=== PATIENT | male | born 1995 | race Caucasian/White ===

== ENCOUNTER 2022-12-02 14:15 | Emergency (ER) | payer MEDICAID, SELFPAY ==
[2022-12-02 14:18] VITALS: BP 161/109; PULSE 66; RESP 18; TEMP 36.6; O2SAT 97; BMI 30.2
[2022-12-02] MEDS: Lidocaine 1% (20 ml mdv) 20 ML Vial 10 ML INFILT (16:13)
--- NOTE | 2022-12-02 16:31 | EDS_ITS ---
HPI History of Present Illness Chief Complaint: Dental Detail of Chief Complaint: Dental pain and infection for several days with pain for several weeks. Informant: patient and parent Onset/Context/Timing Onset: Days and Weeks Context: Gradual Onset Timing: Continuous Current Severity: Moderate Maximum Severity: Moderate Relieved by: NSAIDs Associated Symptoms Assocated Symptom - Dental: fever, jaw swelling and face swelling Narrative Narrative: 27-year-old male no significant past medical or surgical history. Has had a dental infection that is gotten worse over the last 4 to 5 days. He had dental pain in the same area for several weeks. Said he has amoxicillin allergy and had a rash when he was a child. They placed him on clindamycin recently has developed a rash with itching now with that. He denies any trouble breathing or swallowing. He does have left-sided jaw and facial swelling. He saw the urgent care today who sent him to the emergency department. Prior similar symptoms: No Recent Illness/Hospitalization: No PFSH PFSH Medical History no medical history no medical history Home Medications doxycycline hyclate 100 mg capsule 100 mg PO BID 10 days #20 caps 12/02/22 [Rx Last Taken Unknown] Allergy/AdvReac Type Severity Reaction Status Date / Time amoxicillin Allergy Rash Verified 12/02/22 14:18 clindamycin Allergy Rash Verified 12/02/22 14:18 Surgical History no surgical history no surgical history Social History Smoking Status: Current every day smoker tobacco type: cigarettes ROS ROS ED ROS Narrative Low-grade fever. Dental pain. Left-sided facial and jaw swelling. Review of Systems ROS Unobtainable: Denies due to encephalopathy Constitutional Constitutional ED: Reports fever(s) and subjective; Denies chills Eyes Eyes: Denies blurry vision ENT ENT ED: Denies ear pain Cardiovascular Cardiovascular: Denies chest pain Respiratory/Chest Respiratory/Chest: Denies cough or dyspnea Gastrointestinal Gastrointestinal: Denies abdominal pain Genitourinary Genitourinary ED: Denies dysuria or hematuria Musculoskeletal Musculoskeletal: Denies arthralgias, back pain, myalgias or neck pain Integumentary Denies abscess or Abrasions Neurologic Neurologic: Denies headache(s) Psychiatric Psychiatric: Denies anxiety Endocrine Endocrinology: Denies cold intolerance Hematologic/Lymphatic Hematologic/Lymphatic: Denies easy bleeding or easy bruising Allergic/Immunologic Allergic/Immunologic ED: Reports mouth swelling; Denies tongue swelling or urticaria EXAM Physical Exam Narrative Exam Narrative: [id number] male vital signs stable afebrile does not look septic toxic. No distress. H EENT exam pupils are reactive light. He does have left jaw mandibular swelling. Inside his mouth he has multiple decaying teeth on the left side left lower jaw his molars and premolars are eroded down to the gumline the gums swollen consistent with gingivitis and infection. There is also an abscess on the inner portion of the his third tooth from the back on the left lower jaw. This I can drain. There is no Christian's angina. He can open and close his mouth easily. No trouble breathing or swallowing. No drooling. There is no significant cervical lymphadenopathy. Lungs are clear. Heart regular rhythm. No murmur. Abdomen soft. Otherwise exam unremarkable. Const Vital Signs: 12/02/22 14:18 Temperature 98 F Temperature Source Temporal Pulse Rate 66 Respiratory Rate 18 Blood Pressure 161/109 H Blood Pressure Mean 126 Pulse Ox 97 Oxygen Delivery Method Room Air Positive well nourished and well developed; Negative for obese, cachectic, contractures or unkempt General Appearance ED: well developed and NAD; Negative for unkempt, cachectic or contractures Nutritional Appearance: Negative for cachectic or obese HEENT tenderness; Negative for trauma Mouth ED: Yes tongue normal, Yes salivary gland normal, No mouth trauma, Yes oral and palatal mucosa abnormal and No salivary gland abnormal Mouth: tongue normal, salivary gland normal, No mouth trauma, oral and palatal mucosa abnormal and No salivary gland abnormal Teeth and Gingiva: abnormal tooth and associated gingiva, caries, gingiva abnormal, poor dentition and teeth discoloration Throat: posterior oropharynx normal Eyes PERRL and EOMs intact bilaterally General Eye ED: Negative for pale conjunctiva or scleral icterus Visual Acuity: Negative for other Neck no lymphadenopathy, supple and no JVD General: normal visual inspection; Negative for anterior neck swelling, tenderness or submandibular swelling Lymph Lymphatic: no lymphadenopathy noted; Negative for lymphadenopathy Chest Wall inspection of chest normal and palpation of chest normal Chest: Negative for other Resp normal respiratory effort, no retractions and clear to auscultation bilaterally Cardio regular rate, regular rhythm, S1 normal heart sound, S2 normal heart sound and n o murmurs Jugular Venous Distention: Negative for other Palpation: Negative for palpable S3 Rate: Negative for bradycardia Rhythm: Negative for abnormal rhythm GI normal to inspection, nondistended, normoactive bowel sounds, non-tender, non- distended and no masses Inspection: Negative for other Palpation: soft Back/Spine General Back: Negative for CVA tenderness Cervical Spine: Negative for other Thoracic Spine / Upper Back: Negative for thoracic spinal tenderness Extremity normal to inspection and no joint enlargement General Extremety ED: Negative for edema General Extremity: Negative for edema Neuro oriented x3, CN's II-XII intact bilaterally and moves all extremities Sensorium / Orientation: alert, oriented to person, oriented to place and oriented to time Motor Exam: strength 5/5 throughout Psych mental status grossly normal Appearance: Negative for unkempt Attitude: No agitated Mood & Affect: Negative for depressed, anxious or tearful Skin no rashes or lesions noted and no wounds General Skin Exam: Negative for other Image ED - URI/Dental Diagram: 1. Left lower jaw dental erosion to the gumline. Gingivitis. With a medial dental abscess off the most proximal molar. MDM MDM MDM Narrative Medical decision making narrative: 27-year-old male with dental cavities, peridental abscess I will incise and drain and gingivitis. He has an allergy to amoxicillin and clindamycin. Was recently on clindamycin and developed a rash and itching. I will incise and drain the abscess. I spoke to our pharmacist felt that doxycycline was the next best option for coverage. Due to his allergies to clindamycin and amoxicillin. Procedures Other Procedures Procedure(s): Left lower jaw inside the third molar. Peridental abscess. Anesthetized with lidocaine. Incised and drained with 11 blade scalpel. Was able to expressed 1 to 2 cc of pus and blood. Patient tolerated well. Rinse his mouth out. Will be discharged home on doxycycline. Discharge Plan Triage Chief Complaint: Dental ED Provider: Armando Brown Dx/Rx/DC Orders Clinical Impression: Dental abscess, Gingivitis, acute Instructions: Understanding Gingivitis, ED Dental Abscess Prescriptions: New doxycycline hyclate 100 mg capsule 100 mg PO BID 10 Days Qty: 20 0RF Primary Care Provider: Care Physician,No Primary Referrals: Diann Lucero [Non-Staff] - As soon as possible Care Physician,No Primary [Primary Care Provider] - Activity Restrictions/Additional Instructions: Alternate Motrin and Tylenol for pain. Warm salt water mouth rinses 3 times a day. Take the antibiotic doxycycline 1 pill twice a day till gone. Call and follow-up with a local dentist as soon as possible. Return if getting a lot worse. Ice to your jaw. Disposition Disposition: Home, Self Care
== END 2022-12-02 17:06 | disposition home or self-care (01) ==
PROVIDERS: Emergency Provider Emergency Medicine; Visit Provider Emergency Medicine
DX: K04.7 Periapical abscess without sinus (principal); K02.9 Dental caries, unspecified; F17.210 Nicotine dependence, cigarettes, uncomplicated; K05.10 Chronic gingivitis, plaque induced
CPT/HCPCS: 41800; 99283